=== PATIENT | female | born 1985 | race Two or more races ===

== ENCOUNTER 2018-09-11 13:55 | Emergency (ER) | payer OTHER ==
[~2018-09-11] VITALS: Ht 160 cm; Wt 67.1 kg
[2018-09-11] MEDS ORDERED: SYNTHROID137 MCG PO (14:09)
== END 2018-09-11 19:13 | disposition home or self-care (01) ==
LOC: ER 13:55
DX: K52.9 Noninfective gastroenteritis and colitis, unspecified (principal)